=== PATIENT | female | born 1965 ===

== ENCOUNTER 2017-03-03 03:47 | Emergency (ER) | payer OTHER ==
[2017-03-03 04:50] VITALS: BP 140/101
[2017-03-03] MEDS ORDERED: ASPIRIN PO ONE (04:50)
--- NOTE | 2017-03-03 05:12 | XRay Report ---
FINAL REPORT EXAM: XR CHEST ROUTINE 2V HISTORY: SOB TECHNIQUE: PA and lateral views of the chest were submitted. FINDINGS: There is a severe rotatory dextroscoliosis of the thoracic spine. The heart size is normal. The lungs are not congested. There are no localized infiltrates or effusions. The soft tissues reveal surgical clips in the left axilla. IMPRESSION: No acute process in the chest. Severe rotatory dextroscoliosis of the thoracic spine
[2017-03-03 05:35] LABS: Basophils # (Auto) 0.1 K/mm3 (0.0-0.1); Basophils % (Auto) 0.5 % (0.0-1.8); Eosinophils % (Auto) 0.3 % (0.0-4.3); Hematocrit 54.4 % (30.3-42.9); Hemoglobin 17.9 gm/dl (10.1-14.3); Lymphocytes # (Auto) 1.3 K/mm3 (1.2-5.4); Lymphocytes % (Auto) 10.9 % (13.4-35.0); Mean Corpuscular HGB Conc 33 % (30-34); Mean Corpuscular Hemoglobin 29 pg (28-32); Mean Corpuscular Volume 89 fl (79-97); Monocytes % (Auto) 8.4 % (0.0-7.3); Platelet Count 188 K/mm3 (140-440); Red Blood Count 6.13 M/mm3 (3.65-5.03); Red Cell Distribution Width 14.2 % (13.2-15.2)
[2017-03-03 05:47] LABS: BUN/Creatinine Ratio 23; Blood Urea Nitrogen 14 mg/dL (7-17); Calcium 8.8 mg/dL (8.4-10.2); Hemolysis Index 22
[2017-03-03 08:36] LABS: Bacteria,Urine 2+ /HPF (Negative); Bilirubin,Urine NEG (Negative); Blood,Urine NEG (Negative); Mucus,Urine 3+ /HPF; Nitrite,Urine NEG (Negative)
[2017-03-03 08:38] LABS: Color,Urine Yellow (Yellow)
== END 2017-03-03 09:40 | disposition left against medical advice (07) ==
LOC: ED 03:47
DX: R07.9 Chest pain, unspecified (principal); Z53.21 Procedure and treatment not carried out due to patient leaving prior to being seen by health care provider
CPT/HCPCS: 36415; 71046; 80048; 81001; 84484; 85025; 93005; 93010